=== PATIENT | male | born 1975 | race Caucasian/White ===

== ENCOUNTER 2019-06-04 07:14 | Emergency (ER) | payer OTHER ==
[2019-06-04] MEDS ORDERED: PRED20TA PO (07:27)
[2019-06-04] MEDS ORDERED: AZIT250T6 PO (07:27)
[2019-06-04] MEDS ORDERED: ALBU2.5V8 IH (07:27)
--- NOTE | 2019-06-04 07:27 | PHYS DOC ---
Past History Past Medical History: No Pertinent History Additional Past Surgical Histo: Shoulder Smoking: Non-smoker Alcohol Use: None Drug Use: None Adult General Chief Complaint Chief Complaint: SHORTNESS OF BREATH HPI HPI 44-year-old male presents with one-week history of cough and generalized malaise. Reports history of seasonal allergies. Patient reports he is been taking Claritin and Mucinex without any improvement of symptoms. Reports worse when waking up in the morning. Denies smoking history. Denies fever or chills. Review of Systems Review of Systems Constitutional: Denies fever or chills; reports malaise Eyes: Denies redness or eye pain HENT: Denies nasal congestion or sore throat Respiratory: Reports cough and wheezing Cardiovascular: Denies chest pain or palpitations GI: Denies abdominal pain, nausea, or vomiting : Denies dysuria or hematuria Musculoskeletal: Denies back pain or joint pain Integument: Denies rash or skin lesions Neurologic: Denies headache, focal weakness or sensory changes Complete systems were reviewed and found to be within normal limits, except as documented in this note. Physical Exam Physical Exam Constitutional: Well developed, well nourished, no acute distress, non-toxic appearance HENT: Normocephalic, atraumatic, oropharynx moist Eyes: Conjunctiva normal, no discharge Neck: Normal range of motion, no tenderness, supple Cardiovascular: Heart rate normal, regular rhythm Lungs & Thorax: Bilateral breath sounds equal, rhonchi noted Skin: Warm, dry, no erythema, no rash Extremities: No tenderness, ROM intact, no edema Neurologic: Alert and oriented X 3, no focal deficits noted Psychologic: Affect normal, judgement normal EKG EKG [] Radiology/Procedures Radiology/Procedures PROCEDURE: CHEST PA & LATERAL CHEST PA LATERAL History: Cough Comparison: None. Findings: 2 views of the chest are submitted. There is no lobar infiltrate, pneumothorax, or effusion. Pericardial cardiac silhouette is within normal limits in size. Impression: 1. No lobar consolidation is identified by radiographs. Electronically signed by: Federico Valverde MD (06/04/2019 7:37 AM) [facility] Course & Med Decision Making Course & Med Decision Making Pertinent Imaging studies reviewed. (See chart for details) Patient presents with history of present illness and physical exam consistent for acute bronchitis. Chest x-ray obtained without focal pneumonia. Symptomatic steroid provided. Patient stable for discharge with outpatient follow-up with PCP. Discussed findings and plan with patient, who acknowledges understanding and agreement. [employer]deepak Disclaimer Dragon Disclaimer This electronic medical record was generated, in whole or in part, using a voice recognition dictation system. Departure Departure: Impression: Primary Impression: Bronchitis Disposition: 01 HOME, SELF-CARE Condition: STABLE Referrals: PCP,UNKNOWN (PCP) Patient Instructions: Acute Bronchitis, [id number] Script[facility] Azithromycin (AZITHROMYCIN TABLET) 250 Mg Tablet 1 PKG PO UD for bronchitis, #6 TAB Take 2 tablets today and then one tablet every day thereafter for the next 4 days Prov: NIR GARDNER DO 06/04/19 Albuterol Sulfate (PROAIR HFA INHALER) 8.5 Gm Hfa.aer.ad 2 PUFF IH PRN Q4-6HRS PRN for SOA, #1 INHALER 0 Refills Prov: NIR GARDNER DO 06/04/19 Prednisone (PREDNISONE) 20 Mg Tablet 2 TAB PO DAILY for Bronchitis, #8 TAB Start this prescription tomorrow, Thursday06/05/19 Prov: NIR GARDNER DO 06/04/19 NIR GARDNER DO Jun 04, 2019 07:27
[2019-06-04] MEDS ORDERED: DEXAMETHASONE 4 MG TABLET PO ONE (07:30)
--- NOTE | 2019-06-04 07:40 | RAD ---
CHEST PA LATERAL History: Cough Comparison: None. Findings: 2 views of the chest are submitted. There is no lobar infiltrate, pneumothorax, or effusion. Pericardial cardiac silhouette is within normal limits in size. Impression: 1. No lobar consolidation is identified by radiographs. Electronically signed by: Federico Valverde MD (06/04/2019 7:37 AM) [id number]
[2019-06-04] MEDS ORDERED: DEXAMETHASONE 4 MG TABLET ONE (07:52)
[2019-06-04 08:00] VITALS: BP 120/65
== END 2019-06-04 07:54 | disposition home or self-care (01) ==
LOC: ER 07:14
DX: J40 Bronchitis, not specified as acute or chronic (principal)
CPT/HCPCS: 71046; 99284